=== PATIENT | male | born 1960 ===

== ENCOUNTER → 2021-01-31 14:38 | Outpatient (BNVA) | payer MEDICARE, MEDICAID, SELFPAY | PROVIDERS: PCP Internal Medicine; Visit Provider Hospitalist | DX: G47.33 Obstructive sleep apnea (adult) (pediatric) (principal); R05 Cough; F51.01 Primary insomnia | CPT/HCPCS: 99212 ==

== ENCOUNTER → 2022-02-17 15:07 | Outpatient (BNVA) | payer MEDICARE, MEDICAID, SELFPAY | PROVIDERS: PCP Internal Medicine; Visit Provider Hospitalist | DX: G47.33 Obstructive sleep apnea (adult) (pediatric) (principal); R05.9 Cough, unspecified; F51.01 Primary insomnia; Z79.899 Other long term (current) drug therapy; Z93.0 Tracheostomy status | CPT/HCPCS: 99212 ==

== ENCOUNTER → 2022-11-11 13:23 | Outpatient (BNVA) | payer MEDICARE, MEDICAID, SELFPAY | PROVIDERS: PCP Internal Medicine; Visit Provider Hospitalist | DX: R05.9 Cough, unspecified (principal); G47.33 Obstructive sleep apnea (adult) (pediatric); F51.01 Primary insomnia; J95.03 Malfunction of tracheostomy stoma; Z87.891 Personal history of nicotine dependence; Z90.02 Acquired absence of larynx | CPT/HCPCS: 99212 ==

== ENCOUNTER 2023-05-07 13:55 | Outpatient (AMB) | payer MEDICARE, MEDICAID, SELFPAY ==
[2023-05-07 14:02] VITALS: BP 110/70; PULSE 85; O2SAT 97; BMI 34.4
--- NOTE | 2023-05-07 14:02 | MHC.OFFVIS ---
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 He does have a tracheostomy tube that he does placed on the night to maintain the patency of the stoma. In addition to that he has still been using the Ambien. The Ambien in the trazodone have been very effective allowing him to have adequate sleep. He does try to take medication holidays. But, when he does not take he does not sleep anything. Otherwise the patient is without any other complaints period. He does have chronic congestion of the chest area. He has significant coughing. Appears the color the sputum is clear without any bleeding and denies any evidence of any infection at this time. Denies any fevers or chills and denies any chest pain. 02/17/2022 the patient is here for a pulmonary follow-up visit. Since we last spoke the patient was started on an TAMMIE-inhibitor. Apparently resulted in angioedema significant facial swelling. The patient does have a stoma so it bypass the upper airway obstruction which could have been very serious. The patient was given steroids and also antibiotics. He is due to finish the prednisone today. He appears to still have significant edema and induration of his face and soft tissues. The patient would benefit from additional steroids. However he does have follow-up tomorrow with his primary care doctor. therefore he will take his dose today and then follow-up tomorrow. In the meantime the fact that he is still has bypassed the significant upper airway obstruction. He continues to have difficult time sleeping specially in the prednisone. He continues to lose responding well to the use of Ambien along with trazodone. From a respiratory status seems to be doing well. He is using the trach collar with aerosol mask. He has not been able to get the sterile water from [facility] [place]. Therefore he is buying distilled water. This is okay but he should be getting his supplies delivered through the [employer] company based on his medical condition. 11/11/2022 the patient is here for pulmonary follow-up visit. The patient recently was hospitalized with a carotid vessel occlusion. He did require stent placement. He did have some bleeding after the procedure. He did require to be intubated via the stoma. He was kept in the hospital for many weeks. Now he is improving. He is back to his baseline. He is having difficulty sleeping. He continues use the Ambien at nighttime also with the trazodone. Although has not been working as well. He does wake up after about 4 hours. Will go ahead and increase the trazodone to 100 mg at nighttime with the help with that a improves his sleep quality. The patient does use a tracheostomy at nighttime. He will give me information regarding the type 0 tracheostomy in order to order it for him. This is to maintain the this stoma open. 05/07/2023 the patient is here for a pulmonary follow-up visit. Since we last spoke the patient has had issues with bleeding from the stoma. He was evaluated in the ER multiple times including [place]. He needed cauterization about 4 times by ENT. Ultimately placed on an HME which appears to be helpful in helping. He has have oxygen at home with humidification although he is no longer using that. He still using the Ambien also the trazodone. If they both work well for his issues with insomnia. He does sleep most of the night. The patient does not complain of any evidence of any adverse effects such as retrograde amnesia. He knows to take hot vacation holiday from the medication. At this point the patient has been the medication for a long time and will continue it at this time as prescribed. Will follow-up in the springtime otherwise if any issues arise his call the office for an earlier assessment. [facility] Medical History (Updated 05/07/23 @ 23:08 by Theo Bobo MD) Angioedema Cough Insomnia SHERRI (obstructive sleep apnea) Tracheal stoma stenosis Social History (Updated 02/17/22 @ 15:19 by TYRONE Sosa) Patient Tobacco Use Status: Former Tobacco user Tobacco use type: Cigarette Years Smoked: 20 years GO Review of Systems Const Reports difficulty sleeping, Denies night sweats and Reports weight loss Eyes Denies change in vision ENT Reports as per HPI, Denies change in voice, Denies lip swelling, Denies mouth pain, Reports nasal congestion, Reports nasal discharge, Reports throat swelling and Denies tongue swelling Card Denies chest pain Resp Reports cough GI Denies abdominal pain Musc Denies no additional complaints Neuro Denies Neuro-related abnormal movements Psych Denies no additional complaints Eric/Lymph Denies easy bleeding and Denies lymphadenopathy Aller/Immun Denies lip swelling, Reports throat swelling and Denies tongue swelling Physical Exam Vital Signs: Last Vital Signs Pulse 85 05/07/23 14:02 BP 110/70 05/07/23 14:02 Pulse Ox 97 05/07/23 14:02 Oxygen Delivery Method Room Air 05/07/23 14:02 BMI result Body Mass Index 34.4 Const General: alert HEENT Face and sinus: Yes edema Neck Neck: Yes full ROM, Yes no lymphadenopathy and Yes tracheostomy present Chest Chest palpation & inspection: normal inspection of the chest Resp Auscultation: diminished lung sounds Cardio Rate: regular rate Rhythm: regular rhythm Heart sounds: S1 normal heart sound present and S2 normal heart sound present GI Palpation (GI): Soft to palpation and nontender Auscultation: normal bowel sounds Skin General skin exam: rashes and/or lesions noted Assessment & Plan Assessment & Plan (1) Cough: Code(s): R05 - Cough (2) SHERRI (obstructive sleep apnea): Code(s): G47.33 - Obstructive sleep apnea (adult) (pediatric) (3) Insomnia: Code(s): G47.00 - Insomnia, unspecified Qualifiers: Insomnia type: primary Qualified Code(s): F51.01 - Primary insomnia (4) Tracheal stoma stenosis: Comment: better Code(s): J39.8 - Other specified diseases of upper respiratory tract Plan Continue Ambien and trazodone for sleep. Sleep with head of bed elevated and 30? continue Trazodone 100mg QHS stoma tube with HME as per ENT Follow-up 8-10 months Coding Level of Care Code Est Pt Level 4 (31470) Diagnoses Cough R05 SHERRI (obstructive sleep apnea) G47.33 Insomnia F51.01 Insomnia type: primary Tracheal stoma stenosis J39.8 Time Spent (min) 18
== END 2023-05-07 14:22 | disposition home or self-care (01) ==
PROVIDERS: PCP Internal Medicine; Visit Provider Hospitalist
DX: G47.33 Obstructive sleep apnea (adult) (pediatric) (principal); R05.9 Cough, unspecified; J39.8 Other specified diseases of upper respiratory tract; F51.01 Primary insomnia
CPT/HCPCS: 99214

== ENCOUNTER → 2023-05-07 13:55 | Outpatient (BNVA) | payer MEDICARE, MEDICAID, SELFPAY | PROVIDERS: PCP Internal Medicine; Visit Provider Hospitalist | DX: R05.9 Cough, unspecified (principal); G47.33 Obstructive sleep apnea (adult) (pediatric); F51.01 Primary insomnia; J39.8 Other specified diseases of upper respiratory tract; Z79.899 Other long term (current) drug therapy | CPT/HCPCS: 99212 ==

== ENCOUNTER 2023-12-31 14:05 | Outpatient (AMB) | payer MEDICARE, MEDICAID, SELFPAY ==
[2023-12-31 14:14] VITALS: PULSE 84; O2SAT 98; BMI 34.2
--- NOTE | 2023-12-31 14:14 | MHC.OFFVIS ---
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 He does have a tracheostomy tube that he does placed on the night to maintain the patency of the stoma. In addition to that he has still been using the Ambien. The Ambien in the trazodone have been very effective allowing him to have adequate sleep. He does try to take medication holidays. But, when he does not take he does not sleep anything. Otherwise the patient is without any other complaints period. He does have chronic congestion of the chest area. He has significant coughing. Appears the color the sputum is clear without any bleeding and denies any evidence of any infection at this time. Denies any fevers or chills and denies any chest pain. 05/07/2023 the patient is here for a pulmonary follow-up visit. Since we last spoke the patient has had issues with bleeding from the stoma. He was evaluated in the ER multiple times including [place]. He needed cauterization about 4 times by ENT. Ultimately placed on an HME which appears to be helpful in helping. He has have oxygen at home with humidification although he is no longer using that. He still using the Ambien also the trazodone. If they both work well for his issues with insomnia. He does sleep most of the night. The patient does not complain of any evidence of any adverse effects such as retrograde amnesia. He knows to take hot vacation holiday from the medication. At this point the patient has been the medication for a long time and will continue it at this time as prescribed. Will follow-up in the springtime otherwise if any issues arise his call the office for an earlier assessment. 12/31/2023 the patient is here for a pulmonary follow-up visit. Overall he is doing well. Still having some episodes of hemoptysis coming from the stoma. But much better. He has not had any today. He is using the HME to try to increase humidity. The patient is aware that if he gets worse will call. Also give him a x-ray requisite that he can go get an x-ray if symptoms worsen. He has been changing the trach without any difficulties. The the patient has also been using the Ambien for sleep. Ambien has been affecting beneficial for many years. He denies any adverse effects such as Retrograde amnesia from the medication. he does try to take medication holidays. He is also taking trazodone he is tolerating the medicine well. [facility] Medical History (Updated 12/31/23 @ 14:19 by Theo Bobo MD) Hemoptysis Tracheal stoma stenosis Angioedema Insomnia SHERRI (obstructive sleep apnea) Cough Social History (Updated 02/17/22 @ 15:19 by Marian Polanco John) Patient Tobacco Use Status: Former Tobacco user Tobacco use type: Cigarette Years Smoked: 20 years GO Review of Systems Const Reports difficulty sleeping, Denies night sweats and Reports weight loss Eyes Denies change in vision ENT Reports as per HPI, Denies change in voice, Denies lip swelling, Denies mouth pain, Reports nasal congestion, Reports nasal discharge, Reports throat swelling and Denies tongue swelling Card Denies chest pain Resp Reports cough and Reports hemoptysis GI Denies abdominal pain Musc Denies no additional complaints Neuro Denies Neuro-related abnormal movements Psych Denies no additional complaints Eric/Lymph Denies easy bleeding and Denies lymphadenopathy Aller/Immun Denies lip swelling, Reports throat swelling and Denies tongue swelling Physical Exam Vital Signs: Last Vital Signs Pulse 84 12/31/23 14:14 Pulse Ox 98 12/31/23 14:14 Oxygen Delivery Method Room Air 12/31/23 14:14 BMI result Body Mass Index 34.2 Const General: alert HEENT Face and sinus: Yes edema Neck Neck: Yes full ROM, Yes no lymphadenopathy and Yes tracheostomy present Chest Chest palpation & inspection: normal inspection of the chest Resp Auscultation: diminished lung sounds Cardio Rate: regular rate Rhythm: regular rhythm Heart sounds: S1 normal heart sound present and S2 normal heart sound present GI Palpation (GI): Soft to palpation and nontender Auscultation: normal bowel sounds Skin General skin exam: rashes and/or lesions noted Assessment & Plan Assessment & Plan (1) Cough: Code(s): R05 - Cough Qualifiers: Cough type: chronic Qualified Code(s): R05.3 - Chronic cough (2) SHERRI (obstructive sleep apnea): Code(s): G47.33 - Obstructive sleep apnea (adult) (pediatric) (3) Insomnia: Code(s): G47.00 - Insomnia, unspecified Qualifiers: Insomnia type: primary Qualified Code(s): F51.01 - Primary insomnia (4) Tracheal stoma stenosis: Comment: better Code(s): J39.8 - Other specified diseases of upper respiratory tract (5) Hemoptysis: Code(s): R04.2 - Hemoptysis Plan Continue Ambien and trazodone for sleep. Sleep with head of bed elevated and 30? continue Trazodone 100mg QHS stoma tube with HME as per ENT CXR Follow-up 8-10 months Orders: Orders XR chest 2V 12/31/23 R04.2 - Hemoptysis Medications: Refilled zolpidem 10 mg PO BEDTIME 90 days 90 tabs 3RF Coding Level of Care Code Est Pt Level 4 (63742) Diagnoses Chronic cough R05.3 Cough type: chronic SHERRI (obstructive sleep apnea) G47.33 Primary insomnia F51.01 Insomnia type: primary Tracheal stoma stenosis J39.8 Hemoptysis R04.2 Time Spent (min) 16
== END 2023-12-31 14:24 | disposition home or self-care (01) ==
PROVIDERS: PCP Internal Medicine; Visit Provider Hospitalist
DX: R05.3 Chronic cough (principal); G47.33 Obstructive sleep apnea (adult) (pediatric); F51.01 Primary insomnia; J39.8 Other specified diseases of upper respiratory tract; R04.2 Hemoptysis
CPT/HCPCS: 99214

== ENCOUNTER → 2023-12-31 14:05 | Outpatient (BNVA) | payer MEDICARE, MEDICAID, SELFPAY | PROVIDERS: PCP Internal Medicine; Visit Provider Hospitalist | DX: R05.3 Chronic cough (principal); G47.33 Obstructive sleep apnea (adult) (pediatric); J39.8 Other specified diseases of upper respiratory tract; F51.01 Primary insomnia; R04.2 Hemoptysis | CPT/HCPCS: 99212 ==

== ENCOUNTER 2024-09-06 14:05 | Outpatient (AMB) | payer MEDICARE, MEDICAID, SELFPAY ==
--- NOTE | 2024-09-06 14:11 | A.OFFVIS_ITS ---
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 Teacher Required: No Power Digger Operator: Power Digger Operator offered & declined Accompanied by: Self / Same As Patient Allergies lisinopril Adverse Reaction (Severe, Verified 09/06/24 14:17) Diarrhea Medication List - Last Reconciled 09/06/24 by Shefali Robin LPN adalimumab (Humira(CF)) 40 mg subcut QWEEK clotrimazole-betamethasone 1-0.05 % appl topical gabapentin 300 mg PO DAILY hydrochlorothiazide 25 mg PO DAILY hydrocodone-acetaminophen 5-325 mg 1 tab PO TID PRN levothyroxine mcg PO melatonin mg PO methotrexate sodium 15 mg PO QWEEK tofacitinib (Xeljanz) 10 mg PO BID tofacitinib (Xeljanz) 5 mg PO BID trazodone 100 mg (2 x 50 mg) PO BEDTIME zolpidem 10 mg PO BEDTIME 90 days HPI Comments Details: The patient is a 62-year-old gentleman with a known history of 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 He does have a tracheostomy tube that he does placed on the night to maintain the patency of the stoma. In addition to that he has still been using the Ambien. The Ambien in the trazodone have been very effective allowing him to have adequate sleep. He does try to take medication holidays. But, when he does not take he does not sleep anything. Otherwise the patient is without any other complaints period. He does have c hronic congestion of the chest area. He has significant coughing. Appears the color the sputum is clear without any bleeding and denies any evidence of any infection at this time. Denies any fevers or chills and denies any chest pain. 05/07/2023 the patient is here for a pulmonary follow-up visit. Since we last spoke the patient has had issues with bleeding from the stoma. He was evaluated in the ER multiple times including [place]. He needed cauterization about 4 times by ENT. Ultimately placed on an HME which appears to be helpful in helping. He has have oxygen at home with humidification although he is no longer using that. He still using the Ambien also the trazodone. If they both work well for his issues with insomnia. He does sleep most of the night. The patient does not complain of any evidence of any adverse effects such as retrograde amnesia. He knows to take hot vacation holiday from the medication. At this point the patient has been the medication for a long time and will continue it at this time as prescribed. Will follow-up in the springtime otherwise if any issues arise his call the office for an earlier assessment. 12/31/2023 the patient is here for a pulmonary follow-up visit. Overall he is doing well. Still having some episodes of hemoptysis coming from the stoma. But much better. He has not had any today. He is using the HME to try to incre ase humidity. The patient is aware that if he gets worse will call. Also give him a x-ray requisite that he can go get an x-ray if symptoms worsen. He has been changing the trach without any difficulties. The the patient has also been using the Ambien for sleep. Ambien has been affecting beneficial for many years. He denies any adverse effects such as Retrograde amnesia from the medication. he does try to take medication holidays. He is also taking trazodone he is tolerating the medicine well. 09/06/2024 the patient is here for a pulmonary follow-up visit. The patient overall has been doing well. He continues uses sleep aids with good effect. He has been well at nighttime. He has not had any issues hemoptysis. He is using the trach at nighttime. Breathing winter she is doing okay. We did request a chest x-ray but he did not have 1 done. He did have a done at any point. Otherwise patient is without any complaints will make sure to provide him with the medications at the pharmacy. Patient will follow-up in a year. [facility] Medical History (Updated 09/06/24 @ 20:31 by Theo Bobo MD) Hemoptysis Tracheal stoma stenosis Angioedema Insomnia SHERRI (obstructive sleep apnea) Cough Social History Patient Tobacco Use Status: Former Tobacco user Tobacco use type: Cigarette Years Smoked: 20 years GO Review of Systems Const Reports difficulty sleeping, Denies night sweats and Reports weight loss Eyes Denies change in vision ENT Reports as per HPI, Denies change in voice, Denies lip swelling, Denies mouth pain, Reports nasal congestion, Reports nasal discharge, Reports throat swelling and Denies tongue swelling Card Denies chest pain Resp Reports cough and Reports hemoptysis GI Denies abdominal pain Musc Denies no additional complaints Neuro Denies Neuro-related abnormal movements Psych Denies no additional complaints Eric/Lymph Denies easy bleeding and Denies lymphadenopathy Aller/Immun Denies lip swelling, Reports throat swelling and Denies tongue swelling Physical Exam Vital Signs: Last Vital Signs Pulse 79 09/06/24 14:13 BP 130/70 09/06/24 14:13 Pulse Ox 97 09/06/24 14:13 Oxygen Delivery Method Room Air 09/06/24 14:13 BMI result Body Mass Index 30.0 Const General: alert HEENT Face and sinus: Yes edema Neck Neck: Yes full ROM, Yes no lymphadenopathy and Yes tracheostomy present Chest Chest palpation & inspection: normal inspection of the chest Resp Auscultation: diminished lung sounds Cardio Rate: regular rate Rhythm: regular rhythm Heart sounds: S1 normal heart sound present and S2 normal heart sound present GI Palpation (GI): Soft to palpation and nontender Auscultation: normal bowel sounds Skin General skin exam: rashes and/or lesions noted Assessment & Plan Assessment & Plan (1) Cough: Code(s): R05 - Cough Category: Medical Qualifiers: Cough type: chronic Qualified Code(s): R05.3 - Chronic cough (2) SHERRI (obstructive sleep apnea): Code(s): G47.33 - Obstructive sleep apnea (adult) (pediatric) Category: Medical (3) Insomnia: Code(s): G47.00 - Insomnia, unspecified Category: Medical Qualifiers: Insomnia type: primary Qualified Code(s): F51.01 - Primary insomnia (4) Tracheal stoma stenosis: Comment: better Code(s): J39.8 - Other specified diseases of upper respiratory tract Category: Medical (5) Hemoptysis: Comment: resolved Code(s): R04.2 - Hemoptysis Category: Medical Plan Continue Ambien and trazodone for sleep. Sleep with head of bed elevated and 30? continue Trazodone 100mg QHS stoma tube with HME as per ENT CXR Follow-up 8-12 months Coding Level of Care Code Est Pt Level 4 (04464) Diagnoses Chronic cough R05.3 Cough type: chronic SHERRI (obstructive sleep apnea) G47.33 Primary insomnia F51.01 Insomnia type: primary Tracheal stoma stenosis J39.8 Hemoptysis R04.2 Time Spent (min) 16
[2024-09-06 14:13] VITALS: BP 130/70; PULSE 79; O2SAT 97
== END 2024-09-06 14:31 | disposition home or self-care (01) ==
PROVIDERS: PCP Internal Medicine; Visit Provider Hospitalist
DX: R05.3 Chronic cough (principal); G47.33 Obstructive sleep apnea (adult) (pediatric); F51.01 Primary insomnia; J39.8 Other specified diseases of upper respiratory tract; R04.2 Hemoptysis
CPT/HCPCS: 99214

== ENCOUNTER → 2024-09-06 14:05 | Outpatient (BNVA) | payer MEDICARE, MEDICAID, SELFPAY | PROVIDERS: PCP Internal Medicine; Visit Provider Hospitalist | DX: J39.8 Other specified diseases of upper respiratory tract (principal); G47.33 Obstructive sleep apnea (adult) (pediatric); R05.3 Chronic cough; F51.01 Primary insomnia; R04.2 Hemoptysis | CPT/HCPCS: 99212 ==